=== PATIENT | male | born 2000 | race Caucasian/White ===

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

== ENCOUNTER 2021-10-01 10:15 | Outpatient (CLI) | payer OTHER ==
[2021-10-01 15:09] LABS: BASOPHILS # (AUTO) 0.1 10^3/uL (0.0-0.1); BASOPHILS % (AUTO) 0.6 %; EOSINOPHILS # (AUTO) 0.5 10^3/uL (0.0-0.7); EOSINOPHILS % (AUTO) 5.5 %; HCT - HEMATOCRIT 48.7 % (42.0-52.0); HGB - HEMOGLOBIN 16.2 g/dL (14.0-18.0); LYMPHOCYTES # (AUTO) 3.6 10^3/uL (1.5-3.5); LYMPHOCYTES % (AUTO) 41.9 %; MEAN CORPUSCULAR HEMOGLOBIN 29.8 pg (27.0-31.0); MEAN CORPUSCULAR HGB CONC 33.3 g/dL (32.0-36.0); MEAN CORPUSCULAR VOLUME 89.7 fL (80.0-94.0); MEAN PLATELET VOLUME 9.8 fL (7.4-11.4); MONOCYTES # (AUTO) 0.7 10^3/uL (0.0-1.0); MONOCYTES % (AUTO) 7.7 %; NEUTROPHILS # (AUTO) 3.8 10^3/uL (1.5-6.6); NEUTROPHILS % (AUTO) 44.1 %; PLT - PLATELET COUNT 256 10^3/uL (130-450); RED BLOOD COUNT 5.43 10^6/uL (4.70-6.10); RED CELL DISTRIBUTION WIDTH 12.6 % (12.0-15.0); WHITE BLOOD COUNT 8.5 x10^3/uL (4.8-10.8)
[2021-10-01 15:17] LABS: ALBUMIN 4.4 g/dL (3.2-5.5); ALBUMIN/GLOBULIN RATIO 1.2 (1.0-2.2); BILIRUBIN,TOTAL 0.5 mg/dL (0.2-1.0); CALCIUM 9.2 mg/dL (8.5-10.3); POTASSIUM 4.2 mmol/L (3.5-5.0)
[2021-10-01 15:22] LABS: THYROID STIMULATING HORMONE 2.22 uIU/mL (0.34-5.60)
--- NOTE | 2021-10-01 15:31 | XRAY Report ---
PROCEDURE: Lumbar Spine 2 View INDICATIONS: LOW BACK PAIN TECHNIQUE: 2 views of the lumbar spine were acquired. COMPARISON: None FINDINGS: Bones: 5 [id number]-fgi-czycyad vertebrae are present. There is normal bony alignment. No vertebral body compression fractures. No suspicious bony lesions. There is a questionable pars defect at L5. Soft tissues: Overlying bowel gas pattern is normal. No suspicious soft tissue calcifications. IMPRESSION: Questionable L5 pars defect. Recommend oblique views for further evaluation. Reviewed by: Ruth Lyman MD on 10/01/2021 3:30 PM PDT Approved by: Ruth Lyman MD on 10/01/2021 3:30 PM PDT Station ID: [id number]
[2021-10-02 03:09] LABS: HCV AB <0.1 s/co ratio (0.0-0.9)
[2021-10-02 05:10] LABS: HIV SCREEN 4TH GENERATION Non Reactive (Non Reactive)
== END 2021-10-01 10:16 | disposition home or self-care (01) ==
LOC: LAB.S 10:15 → DI.S 10:16
PROVIDERS: ATTEND Registered Nurse
DX: M54.50 Low back pain, unspecified (principal); G89.29 Other chronic pain; F84.0 Autistic disorder; Z13.29 Encounter for screening for other suspected endocrine disorder; Z13.0 Encounter for screening for diseases of the blood and blood-forming organs and certain disorders involving the immune mechanism; Z11.4 Encounter for screening for human immunodeficiency virus [HIV]; Z11.59 Encounter for screening for other viral diseases
CPT/HCPCS: 36415; 80050; 86803; 87389

== ENCOUNTER 2022-06-22 17:10 | Outpatient (CLI) | payer MEDICAID | END 2022-06-22 17:11 | disposition critical access hospital (66) | LOC: EMS 17:10 | DX: R07.89 Other chest pain (principal) | CPT/HCPCS: A0425; A0427; A0999 ==

== ENCOUNTER 2022-06-22 17:27 | Emergency (ER) | payer MEDICAID, OTHER ==
[2022-06-22] MEDS ORDERED: MAG HYDROX/AL HYDROX/SIMETH 30 ML UDC PO STA (17:50)
[2022-06-22] MEDS ORDERED: ONDANSETRON 4 MG/2 ML VIAL IVP STA (17:50)
[2022-06-22] MEDS ORDERED: SODIUM CHLORIDE 0.9% 1,000 ML IV STA (17:50)
--- NOTE | 2022-06-22 17:52 | ED Physician Documentation ---
History of Present Illness - Stated complaint Stated Complaint: CP - Chief complaint Chief Complaint: Cardiac - Additonal information Additional information: 21-year-old male presents to the emergency department for evaluation Cute onset chest pain that woke him up from sleep this morning. He states that it was sharp and nonradiating. He states it was so severe he had to crawl to his dad to ask for help. For much of the last week he has been battling a "foodborne illness". He was seen at a local walk-in clinic and told that if his symptoms did not improve to return to the ER. He is been vomiting on average of 2-4 times a day for the last few days. States he has been unable to eat or drink anything. No diarrhea. He has had some abdominal pain. chest pain is not pleuritic. no cough, fevers, hemoptysis, immobilization, surgery, or hormone use. Patient does have a history of anxiety and depression. On presentation to the ER he is very quiet. He has poor eye contact. When asked questions he is slow to respond Review of Systems Constitutional: denies: Fever, Chills Cardiac: reports: Chest pain / pressure. denies: Palpitations, Pedal edema, Calf pain Respiratory: reports: Reviewed and negative GI: reports: Nausea, Vomiting. denies: Constipation, Diarrhea : reports: Reviewed and negative Skin: reports: Reviewed and negative Musculoskeletal: reports: Reviewed and negative Neurologic: reports: Reviewed and negative PD PAST MEDICAL HISTORY - Past Medical History Past Medical History: Yes Psych: Depression, Anxiety - Past Surgical History Past Surgical History: No - Present Medications Home Medications: Ambulatory Orders Medication Instructions Recorded Confirmed guaiFENesin/CODEINE [Robitussin AC] 5 - 10 ml PO Q6H PRN #120 ml 07/02/18 Ondansetron Odt [Zofran] 4 mg TL Q6H PRN #10 tablet 06/22/22 - Allergies Allergies/Adverse Reactions: Allergies Allergy/AdvReac Type Severity Reaction Status Date / Time No Known Drug Allergies Allergy Verified 06/22/22 17:39 - Social History Does the pt smoke?: No Smoking Status: Never smoker Does the pt drink ETOH?: No Does the pt have substance abuse?: No - Immunizations Immunizations are current?: Yes - POLST Patient has POLST: No PD ED PE NORMAL - General General: Alert and oriented X 3, No acute distress (flat slow affect), Well developed/nourished - HEENT HEENT: Atraumatic, Moist mucous membranes - Cardiac Cardiac: RRR, No murmur - Respiratory Respiratory: No respiratory distress, Clear bilaterally - Abdomen Abdomen: Normal bowel sounds, Soft. 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 Relevant findings are: Rate: Rate (enter#) (82) Rhythm: NSR [place]: Normal Intervals: Normal CT. No: Prolonged QT QRS: Normal Ischemia: Non specific changes Compare to prior EKG: Old EKG unavailable Computer interpretation: Agree with computer - Labs Labs: Laboratory Tests 06/22/22 06/22/22 06/22/22 17:55 17:55 17:55 WBC 8.6 RBC 5.54 Hgb 16.4 Hct 48.8 MCV 88.1 MCH 29.6 MCHC 33.6 RDW 12.0 Plt Count 286 MPV 9.3 Neut # (Auto) 5.0 Lymph # (Auto) 2.5 [place] # (Auto) 0.9 Eos # (Auto) 0.1 Baso # (Auto) 0.0 Absolute Nucleated RBC 0.00 Nucleated RBC % 0.0 Sodium 135 Potassium 3.2 L Chloride 104 Carbon Dioxide 24 Anion Gap 7.0 BUN 14 Creatinine 0.9 Estimated GFR (MDRD) 107 Glucose 104 H Calcium 9.2 Total Bilirubin 1.1 H AST 68 H ALT 49 Alkaline Phosphatase 67 Troponin I High Sens 2.9 Total Protein 7.7 Albumin 4.5 Globulin 3.2 Albumin/Globulin Ratio 1.4 Lipase 43 - Rads (name of study) cxr Relevant Findings:: Final report received (No acute cardiopulmonary process) CT abdomen Relevant Findings:: Final report received (No acute abnormality identified within the abdomen or pelvis) PD Medical Decision Making - ED course Complexity details: reviewed results, re-evaluated patient, considered differential, d/w patient ED course: 21-year-old male presents to the emergency department for evaluation of chest pain that he woke up with this morning. Over the last week he has been vomiting 3-4 times a day. Was told by local walk-in clinic he had a foodborne illness. On presentation the patient had a very flat and blunted affect. However cardiopulmonary auscultation was unremarkable. He did however have some generalized abdominal tenderness. Nonperitoneal. I did obtain CBC and electrolytes. Per my interpretation there are no acute worrisome abnormalities. His EKG was nonischemic and high-sensitivity troponin was negative. Clinically history does not match for ACS. I administered the patient 30 mL of Maalox and on reevaluation he reported the symptoms had improved. I suspect the etiology of his symptoms to be esophagitis/gastritis given vomiting over the last week. He was administered 4 mg of Zofran IV here in the ER and on evaluation the nausea has dissipated. He is tolerating sips of clear liquids. A CT scan was obtained to evaluate for occult surgical process such as a cold appendectomy. Also given the reported chest pain we wanted to rule out an esophageal rupture though felt less likely. CT of the abdomen was unremarkable. At this time patient is discharged home in stable condition. Made the recommendation for him to take omeprazole for the next week. Clear liquids for the next 48 hours and then slowly advance the diet. Prescription of Zofran's been sent to patient's preferred pharmacy. The usual emergent return precautions were discussed Departure - Departure Disposition: 01 Home, Self Care Clinical Impression: Chest pain Qualifiers: Chest pain type: unspecified Qualified Code(s): R07.9 - Chest pain, unspecified Gastritis Qualifiers: Gastritis type: unspecified gastritis Chronicity: acute Gastritis bleeding: wit hout bleeding Qualified Code(s): K29.00 - Acute gastritis without bleeding Vomiting Qualifiers: Vomiting type: unspecified Nausea presence: with nausea Qualified Code(s): R11.2 - Nausea with vomiting, unspecified Condition: Stable Record reviewed to determine appropriate education?: Yes Instructions: ED PUD Vs Gastritis Prescriptions: Ondansetron Odt [Zofran] 4 mg TL Q6H PRN #10 tablet PRN Reason: Nausea / Vomiting Comments: Andres was seen today in the emergency department because he has had some chest pain since this morning but has been vomiting for about 1 week. Here in the ER his CBC and electrolytes were entirely normal. His chest x-ray did not show any findings of pneumothorax or pneumonia. His CT of the abdomen was also unremarkable. He was given a dose of Maalox and medication use for heartburn which seemed to make the chest pain better. I suspect that he has developed some esophagitis or inflammation of the esophagus after vomiting for the last week. I do recommend that he take omeprazole twice daily for the next week. This will help cool the stomach. He should drink clear liquids for the next 24 to 48 hours until he is no longer vomiting. Then he can slowly advance his diet with bananas, rice, applesauce and toast. Because laying flat makes the chest pain worse he should avoid eating or drinking 2 to 3 hours before bedtime and I do recommend that he sleep upright on 2-3 pillows over the next week or so. Return immediately to the ER if you find that his symptoms are worsening. I sent a prescription for Zofran and nausea medicine to the [facility] in [place].
[2022-06-22 18:00] LABS: BASOPHILS % (AUTO) 0.5 %; EOSINOPHILS # (AUTO) 0.1 10^3/uL (0.0-0.7); EOSINOPHILS % (AUTO) 1.5 %; HCT - HEMATOCRIT 48.8 % (42.0-52.0); HGB - HEMOGLOBIN 16.4 g/dL (14.0-18.0); LYMPHOCYTES # (AUTO) 2.5 10^3/uL (1.5-3.5); LYMPHOCYTES % (AUTO) 29.2 %; MEAN CORPUSCULAR HEMOGLOBIN 29.6 pg (27.0-31.0); MEAN CORPUSCULAR HGB CONC 33.6 g/dL (32.0-36.0); MEAN CORPUSCULAR VOLUME 88.1 fL (80.0-94.0); MEAN PLATELET VOLUME 9.3 fL (7.4-11.4); MONOCYTES # (AUTO) 0.9 10^3/uL (0.0-1.0); MONOCYTES % (AUTO) 9.9 %; NEUTROPHILS % (AUTO) 58.5 %; PLT - PLATELET COUNT 286 10^3/uL (130-450); RED BLOOD COUNT 5.54 10^6/uL (4.70-6.10); WHITE BLOOD COUNT 8.6 x10^3/uL (4.8-10.8)
[2022-06-22 18:13] LABS: ALBUMIN 4.5 g/dL (3.2-5.5); ALBUMIN/GLOBULIN RATIO 1.4 (1.0-2.2); BILIRUBIN,TOTAL 1.1 mg/dL (0.2-1.0); CALCIUM 9.2 mg/dL (8.5-10.3); CREATININE 0.9 mg/dL (0.6-1.2); POTASSIUM 3.2 mmol/L (3.5-5.0); TOTAL PROTEIN 7.7 g/dL (6.7-8.2)
[2022-06-22] MEDS ORDERED: iohexoL-300 100 ML VIAL ONE (18:15)
--- NOTE | 2022-06-22 18:39 | XRAY Report ---
PROCEDURE: Chest 1 View X-Ray INDICATIONS: Chest Pain TECHNIQUE: One view of the chest was acquired. COMPARISON: 07/02/2018 FINDINGS: Surgical changes and devices: None. Lungs and pleura: No pleural effusions or pneumothorax. Lungs are clear. Mediastinum: Mediastinal contours appear normal. Heart size is normal. Bones and chest wall: No suspicious bony lesions. Overlying soft tissues appear unremarkable. IMPRESSION: No acute cardiopulmonary process. Reviewed by: Chau Fitch MD on 06/22/2022 6:37 PM PDT Approved by: Chau Fitch MD on 06/22/2022 6:37 PM PDT Station ID: [id number]
[2022-06-22] MEDS ORDERED: PANTOPRAZOLE 40 MG VIAL IVP STA (18:57)
--- NOTE | 2022-06-22 19:12 | CT Report ---
PROCEDURE: ABDOMEN/PELVIS W INDICATIONS: n/v X 1 weeks CONTRAST: 100mL Omni 300 TECHNIQUE: After the administration of intravenous contrast, 5 mm thick sections acquired from the diaphragms to the symphysis. 5 mm thick coronal and sagittal reformats were acquired. For radiation dose reducti on, the following was used: automated exposure control, adjustment of mA and/or kV according to deirdre ent size. COMPARISON: None FINDINGS: Visualized lung bases: No pleural effusion. Liver and biliary tree: No suspect focal hepatic lesion. No biliary ductal dilation. Gallbladder: No radiopaque cholelithiasis. Spleen: Unremarkable. Pancreas: Unremarkable. Adrenal glands: Unremarkable. Kidneys and ureters: No hydronephrosis. Gastrointestinal tract: No bowel obstruction. No evidence of acute appendicitis. Peritoneal cavity: No free air or free fluid. Bladder: Unremarkable. Pelvic organs: Unremarkable CT appearance. Vasculature: No abdominal aortic aneurysm. Musculoskeletal: Unremarkable. IMPRESSION: No acute abnormality identified within the abdomen or pelvis. Reviewed by: Chau Fitch MD on 06/22/2022 7:11 PM PDT Approved by: Chau Fitch MD on 06/22/2022 7:11 PM PDT Station ID: [id number]
[2022-06-22 19:26] VITALS: BP 130/75
[2022-06-23] MEDS ORDERED: iohexoL-300 100 ML VIAL IVP ONE (00:24)
== END 2022-06-22 20:02 | disposition home or self-care (01) ==
LOC: EDUNIT# → ED 17:27
DX: K29.00 Acute gastritis without bleeding (principal); R07.9 Chest pain, unspecified
CPT/HCPCS: 36415; 71045; 74177; 80053; 83690; 84484; 85025; 93005; 96374; 96375; 99284; A9270; Q9967